=== PATIENT | male | born 1955 | race Hispanic/Latino ===

== ENCOUNTER 2018-10-18 15:20 | Outpatient (CLI) | payer OTHER ==
--- NOTE | 2018-10-19 08:45 | XRay Report ---
PROCEDURE: XR SPINE LUMBOSACRAL 2-3V TECHNIQUE: 3 views of the lumbar spine HISTORY: DISABILITY EXAM, LOW BACK PAIN COMPARISON: None FINDINGS: Vertebral heights and alignment are maintained. No fracture seen. There is mild to moderate degenerative disc disease. Specifically there is mild disc narrowing and sp urring at L3-4, mild endplate spurring at L4-5, moderate disc narrowing at L5-S1. There is moderate f acet arthropathy at L4-5 and L5-S1. IMPRESSION: Mild to moderate lower lumbar degenerative disc disease and facet arthropathy, most notable at L5-S1. This document is electronically signed by Shayla Stewart MD., October 19 2018 08:43:32 AM ET
== END 2018-10-18 15:21 | disposition home or self-care (01) ==
LOC: XRAY 15:20
PROVIDERS: ATTEND Internal Medicine
DX: Z02.71 Encounter for disability determination (principal); M51.36 Other intervertebral disc degeneration, lumbar region; M48.07 Spinal stenosis, lumbosacral region
CPT/HCPCS: 72100